=== PATIENT | male | born 1960 | race Caucasian/White ===

== ENCOUNTER 2024-08-01 09:59 | Inpatient (IN) | payer OTHER, SELFPAY ==
[2024-08-01] VITALS (7 sets, daily range): BP systolic 126–144; BP diastolic 73–87; PULSE 74–107; RESP 16–19; TEMP 36.2–37.2; O2SAT 95–99; BMI 32.8; BMI 32.3
--- NOTE | 2024-08-01 10:49 | EDS_ITS ---
HPI History of Present Illness Chief Complaint: Cellulitis Informant: patient Narrative Narrative: [id number] male presents increasing swelling right finger hand. Doing malena 2 days ago, he bumped his distal index finger with a hammer was not significant. He started having swelling to the finger that day. Overnight swelling hand with pain up the arm. No fevers or chills. He did not puncture himself with any nails. There is no open wounds. He has a scrape to his left forearm. History of thyroidectomy currently on thyroid medicines. Tetanus unclear if is in the last 5 years. Prior similar symptoms: No PFSH PFSH Home Medications ?Medication ?Instructions ?Recorded ?Last Taken ?Type ibuprofen 200 mg tablet (Advil) 400 mg PO Q8H PRN pain 08/01/24 07/31/24 History levothyroxine 125 mcg tablet 125 mcg PO DAILY 08/01/24 08/01/24 History Allergy/AdvReac Type Severity Reaction Status Date / Time No Known Allergies Allergy Verified 08/01/24 10:00 Social History Smoking Status: Never smoker ROS ROS ED Constitutional Constitutional ED: Denies chills, fever(s) or sweats Eyes Eyes: Denies change in vision ENT ENT ED: Denies dysphagia or sore throat Cardiovascular Cardiovascular: Denies chest pain, leg edema, palpitations or racing heartbeat Respiratory/Chest Respiratory/Chest: Denies cough, dyspnea or dyspnea on exertion Gastrointestinal Gastrointestinal: Denies abdominal pain, diarrhea, nausea or vomiting Genitourinary Genitourinary ED: Denies dysuria, hematuria or urinary frequency Musculoskeletal Musculoskeletal: Reports extremity pain; Denies back pain or neck pain Integumentary Reports wounds; Denies rash Neurologic Neurologic: Denies headache(s), paresthesias or weakness EXAM Physical Exam Const Vital Signs: 08/01/24 10:00 08/01/24 12:00 Temperature 97.2 F L Temperature Source Oral Pulse Rate 107 H 77 Respiratory Rate 18 19 H Blood Pressure 143/85 H 143/75 H Blood Pressure Mean 104 97 Pulse Ox 99 Oxygen Delivery Method Room Air Positive well nourished and well developed Constitutional Narrative: Nontoxic General Appearance ED: well developed and NAD HEENT Reports moist mucous membranes normocephalic and atraumatic Eyes EOMs intact bilaterally and conjunctivae normal General Eye ED: Yes normal appearance of both eyes Neck no lymphadenopathy and supple General: Negative for tenderness Chest Wall Chest: Negative for tenderness Resp normal respiratory effort and normal air movement Effort and Inspection: symmetric chest movement; Negative for respiratory distress Cardio regular rhythm and no murmurs Rate: tachycardic Peripheral Pulses: pulses 2+ throughout GI normal to inspection, nondistended, normoactive bowel sounds and non-tender Palpation: Negative for guarding or rebound tenderness present Back/Spine no CVA tenderness and no thoracic nor lumbar tenderness Extremity Extremity Narrative: Right upper extremity: Swelling to the index finger there is small ecchymosis on the distal phalanx, no nail involvement. No open wounds. Finger slight flexed with fusiform swelling in the finger. Pain with passive range of motion slight pain along the flexor tendon. He has dorsal hand swelling with redness streaking up the arm up to the mid humerus. No axillary lymphadenopathy. General Extremety ED: Yes edema and tenderness General Extremity: edema Neuro oriented x3 and no sensory deficits noted Sensorium / Orientation: awake and alert Skin no rashes or lesions noted and no wounds MDM MDM MDM Narrative Medical decision making narrative: Interventions / MDM: Differential diagnosis: Flexor tenosynovitis, cellulitis Diagnosis considered but do not suspect: N/A My EKG interpretation: N/A Imaging independently reviewed and interpreted by myself: Three-view x-ray right hand: Soft tissue swelling hand and index finger. No soft tissue gas. External documents reviewed: N/A Test considered but not ordered:N/A ED course: Afebrile slight tachycardia arrival. Exam concerns for tenosynovitis of the finger with cellulitis streaking up his arm. Erythema was outlined proximally. Sepsis labs ordered. He is covered with Zosyn and vancomycin. X- ray right hand ordered. 1130: White count 10.4 lactate is 1.7 CRP 96.9. ESR 17. I discussed with plastic surgeon/hand, Dr. Malhotra, sent photos through backline for evaluation. He will evaluate the patient in the ED. Patient evaluated the ED, recommendation admission to medicine for continued IV antibiotics. If symptoms worsen or do not improve, would take to OR. I discussed with Dr. Clark for admission. Re-evaluation: stable Disposition discussed with patient/family/significant other: Patient Case discussed with consulting clinician: Plastic surgery, hospitalist This note was generated with Dragon dictation software. It may contain incorrect words, spelling, and punctuation that were not noted in checking the note before signing. Lab Data Attestation: I reviewed the patient's lab results. Labs: Laboratory Results - last 24 hr 08/01/24 10:30 WBC 10.4 RBC 4.65 Hgb 13.8 Hct 41.0 MCV 88.2 MCH 29.7 MCHC 33.7 RDW Std Deviation 43.4 RDW Coeff of Ginger 13.5 Plt Count 177 MPV 8.6 Immature Gran % (Auto) 0.500 Neut % (Auto) 80.6 H Lymph % (Auto) 9.2 L [place] % (Auto) 8.8 Eos % (Auto) 0.4 Baso % (Auto) 0.5 Absolute Neuts (auto) 8.4 H Absolute Lymphs (auto) 0.95 Nucleated RBC % 0 ESR 17 PT 14.6 INR 1.1 APTT 28.6 Sodium 135 L Potassium 3.7 Chloride 103 Carbon Dioxide 28.0 Anion Gap 5 BUN 15 Creatinine 1.08 Estim Creat Clear Calc 85.83 Est GFR (MDRD) Af Amer 89 Est GFR (MDRD) Non-Af 73 BUN/Creatinine Ratio 13.9 Glucose 142 H Lactic Acid 1.7 Calcium 8.7 Total Bilirubin 2.00 H AST 20 ALT 21 Alkaline Phosphatase 56 C-React Prot Ext Range 96.90 H Total Protein 7.1 Albumin 3.7 Globulin 3.4 Albumin/Globulin Ratio 1.1 Radiography Diagnostic Testing: Clinical Impression(s) from Imaging Studies Hand X-Ray 08/01/24 11:05 IMPRESSION: Soft tissue swelling. Degenerative changes at the first carpometacarpal joint. Electronically Signed: Armani Perera MD at 11:29 EST , Discharge Plan Triage Chief Complaint: Cellulitis ED Provider: Kiran Gama Dx/Rx/DC Orders Clinical Impression: Cellulitis of finger, right, Cellulitis of hand, right Primary Care Provider: Tono Mena
[2024-08-01] MEDS: Piperacil/Tazobactam 4.5 GM in 0.9% Normal Saline (100mL MB+) 100 ML IV (10:58)
[2024-08-01] MEDS: Diphth,Pertuss(Acell),Tet Vac 0.5 ML Vial IM (10:58)
[2024-08-01 11:04] LABS: Erythrocyte Sedimentation Rate 17 mm/hr (0-20)
--- NOTE | 2024-08-01 11:05 | RAD_ITS ---
STUDY: X-RAY - RIGHT HAND REASON FOR EXAM: Male, 64 years old. Swelling and redness. Possible infection. TECHNIQUE: 3 view(s) of the hand. COMPARISON: None. FINDINGS: Normal radiocarpal articulation. Normal distal radioulnar joint. Normal visualized carpal bones. Normal carpal articulations There is degenerative arthrosis of the carpometacarpal (CMC) articulation of the thumb. Normal second through fifth carpometacarpal joints. Normal metacarpi. Normal metacarpophalangeal joint of the thumb. Normal interphalangeal joint of the thumb. Normal proximal and distal phalanges of the thumb. Normal metacarpophalangeal joints of the second through fifth fingers. Normal proximal and distal interphalangeal joints of the second through fifth fingers. Normal phalanges of the second through fifth fingers. Soft tissue swelling. RAD/Hand Min 3 Views IMPRESSION: Soft tissue swelling. Degenerative changes at the first carpometacarpal joint. Electronically Signed: Armani Perera MD at 11:29 EST ,
[2024-08-01 11:07] LABS: Absolute Lymphocyte Count 0.95 X10^3/uL (0.83-4.51); Absolute Neutrophil Count 8.4 X10^3/uL (2.0-7.7); Basophil# 0.05 X10^3/uL; Basophil% 0.5 % (0-1); Eosinophil# 0.04 X10^3/uL; Eosinophils% 0.4 % (0-5); Hemoglobin 13.8 g/dL (13.0-16.5); Lymphocyte # 0.95 X10^3/ul (0.83-4.51); Lymphocyte % 9.2 % (19-41); Mean Corp Hgb Conc 33.7 g/dL (32-36); Mean Corpuscular Hgb 29.7 pg (27.0-32.0); Mean Corpuscular Volume 88.2 fL (80-94); Mean Platelet Vol. 8.6 fl (6.2-12.0); Monocyte# 0.91 X10^3/uL; Monocyte% 8.8 % (0-10); NRBC Flagged by Analyzer 0 % (0-5); Neutrophil # 8.38 X10^3/uL (2.7-7.7); Neutrophil % 80.6 % (47-70); Platelet Count 177 K/mm3 (150-450); RBC Distribution Width CV 13.5 % (11.6-14.6); RBC Distribution Width SD 43.4 fl (35.1-43.9); Red Blood Count 4.65 M/mm3 (4.6-6.2); White Blood Count 10.4 K/mm3 (4.4-11.0)
[2024-08-01 11:13] LABS: ALB/GLOB Ratio 1.1 RATIO (0.9-2.4); AST(SGOT) 20 U/L (15-37); Alanine Aminotransfer ALT/SGPT 21 U/L (16-61); Albumin, Serum 3.7 g/dL (3.2-5.0); Alkaline Phosphatase 56 U/L (45-117); Anion Gap 5 (5-15); BUN 15 mg/dL (7-18); BUN/Creat Ratio 13.9 RATIO (10-20); Calcium,Total 8.7 mg/dL (8.5-10.1); Chloride 103 mmol/L (98-107); Creatinine, Serum 1.08 mg/dL (0.70-1.30); EST Glomerular Filtration Rate 73 mL/min (>60); Est Glom Filt Rate - Afr Amer 89 mL/min (>60); Estimated Creatinine Clearance 85.83 ml/min; Globulin 3.4 g/dL (2.2-4.2); Glucose 142 mg/dL (74-106); Potassium 3.7 mmol/L (3.5-5.1); Protein, Total 7.1 g/dL (6.4-8.2); Sodium Level 135 mmol/L (136-145)
[2024-08-01 11:19] LABS: International Normalized Ratio 1.1; Prothrombin Time (Protime)PT. 14.6 SECONDS (11.7-14.9)
[2024-08-01 11:20] LABS: Partial Thromboplast Time 28.6 Seconds (24.1-36.2)
[2024-08-01] MEDS: Vancomycin HCl 2,000 MG in 0.9% Normal Saline (500mL Bag) 500 ML 250 MG IV (11:22)
[2024-08-01 11:26] LABS: Lactic Acid 1.7 mmol/L (0.4-1.9)
--- NOTE | 2024-08-01 12:54 | EX.PCM.CON.S ---
Assessment & Plan Assessment/Plan (1) Cellulitis of hand, right: (2) Cellulitis of finger, right: PLAN: Plan Patient with likely cellulitis of the right hand. I reviewed x-ray and do not see foreign body or fractures. Given severity of the cellulitis (streaking erythema and pain), recommending admission to medicine for IV antibiotics (agree with broad-spectrum), elevation of the hand, and serial hand exams ([facility] to follow). NPO at midnight. HPI Consult Data Date of Consult: 08/01/24 HPI Narrative HPI Narrative: HIPOLITO RUIZ, is a 64 RHD M who presents with right hand pain and swelling with right arm streaking erythema of 1 day's duration. Reports that he was doing some malena 2 days ago (Thursday, 30 Jul 2024), when he hit his right index finger with a hammer. No wounds/bleeding and no punctures, but reports soreness the next night/day. Woke up today with dorsal and volar hand and finger pain and redness today. Pain is sharp/severe, and improved with rest and elevation. He is not a smoker. Patient is a mock and high school business teacher. Takes thyroid medication (thyroid removed), but is otherwise healthy (no blood thinner, no diabetes). Tetanus updated today in the ED. Of note, had saw injury in remote past to the finger tip of the right index finger tip/distal phalanx tuft requiring reconstruction with a skin graft. PFSH Home Medications ?Medication ?Instructions ?Recorded ?Last Taken ?Type ibuprofen 200 mg tablet (Advil) 400 mg PO Q8H PRN pain 08/01/24 07/31/24 History levothyroxine 125 mcg tablet 125 mcg PO DAILY 08/01/24 08/01/24 History Allergy/AdvReac Type Severity Reaction Status Date / Time No Known Allergies Allergy Verified 08/01/24 10:00 Social History Smoking Status: Never smoker Physical Exam Narrative RIGHT UPPER EXTREMITY +streaking erythema on arm and forearm No lymphadenopathy Inspection: Redness and swelling of the right index finger and dorsal hand. Swelling/redness is much worse dorsally than volarly. Palpation to the dorsal hand swelling is where the most pain is. [place] signs (Right Index Finger): Digit is not resting in flexed position Finger does have fusiform swelling Some pain with palpation along the sheath No pain with DIP joint passive extension/flexor tendon excursion. No pain radiating into the palm with movement of the finger. Motor: Able to bend and extend all MP, PIP, and DIP joints. Sensory: Intact to light touch on the radial and ulnar borders. Vascular: Finger tips are warm and well perfused with <2 second capillary refill. Const alert and oriented x3 Eyes EOMs intact bilaterally Lymph Lymphatic: no lymphadenopathy noted Resp normal respiratory effort Cardio Rate: regular rate Lab / Micro Data 08/01/24 10:30 08/01/24 10:30 Labs: Laboratory Results - last 24 hr 08/01/24 10:30: WBC 10.4, RBC 4.65, Hgb 13.8, Hct 41.0, MCV 88.2, MCH 29.7, MCHC 33.7, RDW Std Deviation 43.4, RDW Coeff of Ginger 13.5, Plt Count 177, MPV 8.6, Immature Gran % (Auto) 0.500, Neut % (Auto) 80.6 H, Lymph % (Auto) 9.2 L, [place] % (Auto) 8.8, Eos % (Auto) 0.4, Baso % (Auto) 0.5, Absolute Neuts (auto) 8.4 H, Absolute Lymphs (auto) 0.95, Nucleated RBC % 0, ESR 17, PT 14.6, INR 1.1, APTT 28.6, Sodium 135 L, Potassium 3.7, Chloride 103, Carbon Dioxide 28.0, Anion Gap 5, BUN 15, Creatinine 1.08, Estim Creat Clear Calc 85.83, Est GFR (MDRD) Af Amer 89, Est GFR (MDRD) Non-Af 73, BUN/Creatinine Ratio 13.9, Glucose 142 H, Lactic Acid 1.7, Calcium 8.7, Total Bilirubin 2.00 H, AST 20, ALT 21, Alkaline Phosphatase 56, C-React Prot Ext Range 96.90 H, Total Protein 7.1, Albumin 3.7, Globulin 3.4, Albumin/Globulin Ratio 1.1 Imaging Radiology Impression Hand X-Ray 08/01/24 11:05 IMPRESSION: Soft tissue swelling. Degenerative changes at the first carpometacarpal joint. Electronically Signed: Armani Perera MD at 11:29 EST , Charges/Coding Multi Select Codes Visit Charges Office Visit/Consults: 27390 OV L5 New 60min
--- NOTE | 2024-08-01 13:16 | PCM.HP.STD ---
HPI - General General Date of Admission: 08/01/24 Date of Service: 08/01/24 Chief Complaint: Right hand pain and swelling HPI Narrative HIPOLITO RUIZ, is a 64 M who presented to [facility] ED on 08/01/2024 with right hand pain and swelling. Patient was doing malena 2 days ago when he bumped his distal index finger with a hammer. He noted that he did not break the skin and the bump was not too significant. However, yesterday he started to develop swelling in that finger and overnight the swelling extended up his hand and started to streak up his arm, so he came in for further evaluation. Patient has never had anything like this happen before. He is on thyroid medication but has no other medical issues. He denies any fevers or chills. He has had pain in the right hand and has taken some ibuprofen at home for this with mild to moderate relief. Vitals were unremarkable in the ED. Labs are notable for borderline WBC count elevation of 10.4 and CRP 96. Right hand x-ray showed soft tissue swelling in the hand with degenerative changes at the first carpometacarpal joint, otherwise no joint involvement and no bony involvement. Patient was evaluated by Dr. Malhotra with plastics in the ED who noted likely cellulitis of the hand with no foreign body or fractures and recommended admission to medicine for IV antibiotics. Hospitalist was then contacted for admission. I saw the patient at bedside in the ED. Patient was sitting up comfortably in bed, conversing normally, in no acute distress. He was very pleasant. Continued to have some right hand pain with swelling when I saw him but denied any other concerns at this point. Will admit for further management. [facility] Home Medications ?Medication ?Instructions ?Recorded ?Last Taken ?Type ibuprofen 200 mg tablet (Advil) 400 mg PO Q8H PRN pain 08/01/24 07/31/24 History levothyroxine 125 mcg tablet 125 mcg PO DAILY 08/01/24 08/01/24 History Allergy/AdvReac Type Severity Reaction Status Date / Time No Known Allergies Allergy Verified 08/01/24 10:00 Social History Smoking Status: Never smoker ROS Constitutional Constitutional: Denies chills, fatigue, fever(s) or weakness Cardiovascular Cardiovascular: Denies chest pain Respiratory/Chest Respiratory/Chest: Denies shortness of breath at rest Gastrointestinal Gastrointestinal: Denies abdominal pain Musculoskeletal Musculoskeletal: Reports other Details: Right hand pain and swelling ; Denies arthralgias or myalgias Vital Signs Vital Signs Vital Signs: 08/01/24 10:00 08/01/24 12:00 Temperature 97.2 F L Temperature Source Oral Pulse Rate 107 H 77 Respiratory Rate 18 19 H Blood Pressure 143/85 H 143/75 H Blood Pressure Mean 104 97 Pulse Ox 99 Oxygen Delivery Method Room Air Weight Weight: 106.594 kg Body Mass Index (BMI) 32.8 Physical Exam Const alert, oriented x3, no apparent distress, healthy appearing and well nourished Constitutional Narrative: Pleasant middle-age male, obese, sitting up comfortably in bed, conversing normally, in no acute distress. General Appearance: cooperative, comfortable, well kempt and well developed HEENT normocephalic, head/scalp atraumatic, hearing grossly normal bilaterally, nasal mucous membranes and turbinates normal and moist oral mucous membranes Eyes PERRL, EOMs intact bilaterally and conjunctivae normal Neck full ROM Chest inspection of chest normal Resp normal respiratory effort, normal air movement, no use of accessory muscles and clear to auscultation bilaterally Cardio regular rate, regular rhythm, no murmurs and peripheral pulses 2+ throughout GI normal to inspection, nondistended, normoactive bowel sounds, soft to palpation, non-tender and non-distended Back/Spine normal ROM Extremity full ROM and no pedal edema Extremity Narrative: Right hand swelling fairly diffusely with streaking erythema up the ventral surface of the arm up to just above the elbow. No significant pain or discomfort with movement throughout the hand. Psych mental status grossly normal Results Lab / Micro Data 08/01/24 10:30 08/01/24 10:30 Labs: Laboratory Results - last 24 hr 08/01/24 10:30: WBC 10.4, RBC 4.65, Hgb 13.8, Hct 41.0, MCV 88.2, MCH 29.7, MCHC 33.7, RDW Std Deviation 43.4, RDW Coeff of Ginger 13.5, Plt Count 177, MPV 8.6, Immature Gran % (Auto) 0.500, Neut % (Auto) 80.6 H, Lymph % (Auto) 9.2 L, [place] % (Auto) 8.8, Eos % (Auto) 0.4, Baso % (Auto) 0.5, Absolute Neuts (auto) 8.4 H, Absolute Lymphs (auto) 0.95, Nucleated RBC % 0, ESR 17, PT 14.6, INR 1.1, APTT 28.6, Sodium 135 L, Potassium 3.7, Chloride 103, Carbon Dioxide 28.0, Anion Gap 5, BUN 15, Creatinine 1.08, Estim Creat Clear Calc 85.83, Est GFR (MDRD) Af Amer 89, Est GFR (MDRD) Non-Af 73, BUN/Creatinine Ratio 13.9, Glucose 142 H, Lactic Acid 1.7, Calcium 8.7, Total Bilirubin 2.00 H, AST 20, ALT 21, Alkaline Phosphatase 56, C-React Prot Ext Range 96.90 H, Total Protein 7.1, Albumin 3.7, Globulin 3.4, Albumin/Globulin Ratio 1.1 Imaging Radiology Impression Hand X-Ray 08/01/24 11:05 IMPRESSION: Soft tissue swelling. Degenerative changes at the first carpometacarpal joint. Electronically Signed: Armani Perera MD at 11:29 EST , Assessment & Plan Assessment/Plan (1) Cellulitis of hand, right: PLAN: Plan Patient is a 64-year-old male who presented to [facility] ED on 08/01/2024 with right hand pain and swelling. 1. Right hand cellulitis ? Plastic surgery consulted. Right hand diffuse swelling with erythema streaking up right arm most consistent with cellulitis. Hand x-ray showed soft tissue swelling but no joint or bony involvement and no foreign body or fractures noted. Borderline WBC count elevation and CRP elevated at 96 but otherwise hemodynamically stable and afebrile. Blood culture ordered. Per plastics, will treat with vancomycin and Zosyn for now along with elevation of the hand and serial hand exams. Will keep n.p.o. at midnight tonight in case of need for a procedure tomorrow. 2. Hypothyroidism ? Continue home Synthroid. 3. Obesity ? BMI 32 on admit. Encouraged lifestyle modifications. Complicates hospital course, care and prognosis. DVT prophylaxis: Lovenox CODE STATUS: Full code, verified Expected disposition: Home, 2 to 3 days Total clinical time spent by myself addressing the patient's medical issues, reviewing all the data, and collaborating with patient's care team: 55 minutes. Charges/Coding Visit Charges Inpatient E&M: 65020 Init Hosp L2
[2024-08-01] MEDS: Ketorolac 15 MG/ML Vial IV ×2 (14:28→23:04)
--- NOTE | 2024-08-01 14:51 | CASEMGMT ---
Care Management Face to Face with patient for initial transition planning/care coordination assessment.? This mortgage or loan underwriter and INDERJIT Perez met with patient in the ED, introduced selves and roles at [facility]. Patient lying in bed, alert and oriented. Patient willing to participate in assessment and is able to answer all questions appropriately.? Care providers, pharmacy, and demographics verified. Admitting Diagnosis: Cellulitis of right finger/hand Other diagnosis history: thyroid removal in January 2024 PCP: Tono Mena Specialists: Rachna Tobar [facility] Preferred Pharmacy: [facility] Insurance: [facility] Prescription Benefit:?yes Living Will/HPOA: Patient does not have, but he would maybe like information on this. LNOK: He is from his ex-, Gabriela. He has 1 stepdaughter, Cameron (30 years old). He has two sons, Cullen (19) and José Miguel (17). Cullen lives with him and José Miguel reportedly splits his time between his house and his ex-'s house. Living Arrangements: 2 story home, with 4 steps to get inside the front (15 steps if he goes in the back). Patient's bedroom and bathroom are on the first floor. Transportation: Patient drives himself to all appointments and has reliable transportation. 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 DME/HHC: Patient denies any DME or HHC. He reports having had some knee operations in the past where he believes he did some outpatient therapy through [facility]. Community Resources: None Behavioral Health History:?Patient reports seeing a counselor through [facility] when he from his ex- 2 years ago. He reports it being very helpful. Patient goals: Patient wishes to discharge home, denies need for home health at this time.? Patient states he has no further needs or concerns at this time. Disposition Plan: Anticipate return home when medically ready. RN JENNIFER/SW to follow for discharge planning needs that may arise. Will need information about advance directives as well. Handoff to acute team MAXIME RODRIGUEZ/INDERJIT team. Sheila Kearns, STOCK PULLER, ORNAMENTAL BRICK INSTALLER
--- NOTE | 2024-08-01 15:28 | PCM.RX.CS ---
Consult Antibiotic Management Pharmacy has been consulted to manage selected antibiotic: Vancomycin Type of Intervention Type of Consult: New start Suspected Infection Suspected Infection: Skin/Soft tissue Prior Doses of Antibiotics Prior Doses of Antibiotics Received/Current Regimen: 2000MG given 08/01/24 @ 1122 in [facility] room Labs Labs: Sodium 135 mmol/L (136-145) L 08/01/24 10:30 Potassium 3.7 mmol/L (3.5-5.1) 08/01/24 10:30 Chloride 103 mmol/L (98-107) 08/01/24 10:30 Carbon Dioxide 28.0 mmol/L (21.0-32.0) 08/01/24 10:30 Anion Gap 5 (5-15) 08/01/24 10:30 BUN 15 mg/dL (7-18) 08/01/24 10:30 Creatinine 1.08 mg/dL (0.70-1.30) 08/01/24 10:30 Est GFR (MDRD) Af Amer 89 mL/min (>60) 08/01/24 10:30 Est GFR (MDRD) Non-Af 73 mL/min (>60) 08/01/24 10:30 BUN/Creatinine Ratio 13.9 RATIO (10-20) 08/01/24 10:30 Glucose 142 mg/dL (74-106) H 08/01/24 10:30 Dosing Weight Weight used for dosin kg Estimated Creatinine Clearance Estimated Creatinine Clearance: 86 Goal Trough Goal Trough: 15-20 mcg/mL Pharmacy Plan for Drug Dosing Pharmacy Plan for Drug Dosinmg every 12 hours starting 08/01/24 @ 2300 Pharmacy Service will continue to monitor and adjust dosing as required. Follow-Up Labs Follow-Up Labs: Trough: Vancomycin Date/Time Labs Ordered Labs to be done on [date and time ordered]: 08/02/24 @ 2230
[2024-08-01] MEDS: 0.9% Saline Lock 10 ML Syringe IV (18:11)
[2024-08-01] MEDS: Piperacil/Tazobactam 3.375 GM in 0.9% Normal Saline (50mL MB+) 50 ML IV (21:59)
[2024-08-01] MEDS: 0.9% Normal Saline (500mL Bag) 500 ML 15 ML IV (21:59)
[2024-08-01] MEDS: Vancomycin HCl 1,750 MG in 0.9% Normal Saline (500mL Bag) 500 ML 250 MG IV (22:48)
[2024-08-02 03:45] VITALS: BP 132/80; PULSE 77; RESP 18; TEMP 36.6; O2SAT 97
--- NOTE | 2024-08-02 05:00 | EKG12_ITS ---
Test Reason : PRE-OP Blood Pressure : */* mmHG Vent. Rate : 70 BPM Atrial Rate : 70 BPM P-R Int : 156 ms QRS Dur : 124 ms QT Int : 424 ms P-R-T Axes : 77 -32 37 degrees QTcB Int : 457 ms Normal sinus rhythm Left axis deviation Non-specific intra-ventricular conduction delay Abnormal ECG When compared with ECG of 18-Nov-2011 13:01, Nonspecific T wave abnormality, worse in Inferior leads Confirmed by CALDERON WHEELER, REINA ([id number]), video effects editor LILIBETH WAGNER ([id number]) on 08/03/2024 8:49:53 AM Referred By: HÉCTOR Confirmed By: REINA MANCERA MD
[2024-08-02] MEDS: Levothyroxine 125 MCG Tablet PO (05:48)
[2024-08-02] MEDS: Ketorolac 15 MG/ML Vial IV ×2 (05:48→11:26)
[2024-08-02] MEDS: Piperacil/Tazobactam 3.375 GM in 0.9% Normal Saline (50mL MB+) 50 ML IV ×3 (05:48→20:41)
--- NOTE | 2024-08-02 06:06 | PN.SURG_ITS ---
Subjective Subjective Doing well this morning and reports left hand swelling and less pain since IV antibiotics and elevation. Reports the pain is mostly on the volar surface of P2 of the index finger. Objective Data Objective Data Vital Signs: Vital Signs Temp Pulse Resp BP Pulse Ox O2 Del Method 97.9 F 77 18 132/80 H 97 Room Air 08/02/24 03:45 08/02/24 03:45 08/02/24 03:45 08/02/24 03:45 08/02/24 03:45 08/02/24 03:45 Oxygen Delivery Method Room Air Weight: 232 lb Body Mass Index (BMI) 32.3 Intake & Output: Intake and Output for Last 24 Hours 07/31/24 08/01/24 08/02/24 23:59 23:59 23:59 Intake Total 1040 / 1040 585 / 585 Balance 1040 / 1040 585 / 585 Lab / Micro Data 08/01/24 10:30 08/01/24 10:30 Labs: Laboratory Results - last 24 hr 08/01/24 10:30: WBC 10.4, RBC 4.65, Hgb 13.8, Hct 41.0, MCV 88.2, MCH 29.7, MCHC 33.7, RDW Std Deviation 43.4, RDW Coeff of Ginger 13.5, Plt Count 177, MPV 8.6, Immature Gran % (Auto) 0.500, Neut % (Auto) 80.6 H, Lymph % (Auto) 9.2 L, [place] % (Auto) 8.8, Eos % (Auto) 0.4, Baso % (Auto) 0.5, Absolute Neuts (auto) 8.4 H, Absolute Lymphs (auto) 0.95, Nucleated RBC % 0, ESR 17, PT 14.6, INR 1.1, APTT 28.6, Sodium 135 L, Potassium 3.7, Chloride 103, Carbon Dioxide 28.0, Anion Gap 5, BUN 15, Creatinine 1.08, Estim Creat Clear Calc 85.83, Est GFR (MDRD) Af Amer 89, Est GFR (MDRD) Non-Af 73, BUN/Creatinine Ratio 13.9, Glucose 142 H, Lactic Acid 1.7, Calcium 8.7, Total Bilirubin 2.00 H, AST 20, ALT 21, Alkaline Phosphatase 56, C-React Prot Ext Range 96.90 H, Total Protein 7.1, Albumin 3.7, Globulin 3.4, Albumin/Globulin Ratio 1.1 Radiography Diagnostic Testing: Radiology Impression Hand X-Ray 08/01/24 11:05 IMPRESSION: Soft tissue swelling. Degenerative changes at the first carpometacarpal joint. Electronically Signed: Armani Perera MD at 11:29 EST , Physical Exam Narrative RIGHT UPPER EXTREMITY Resolved streaking erythema on arm and forearm No lymphadenopathy Inspection: Redness and swelling of the right index finger and dorsal hand has improved. Kanavel signs (Right Index Finger): Digit is not resting in flexed position Finger no longer has fusiform swelling Persistent pain over the volar surface of the index finger, but minimal pain over the A1 flornetin. No pain with DIP joint passive extension/flexor tendon excursion (no pain radiating into the palm). Motor: Able to bend and extend all MP, PIP, and DIP joints. Sensory: Intact to light touch on the radial and ulnar borders. Vascular: Finger tips are warm and well perfused with <2 second capillary refill. Const alert and oriented x3 Eyes EOMs intact bilaterally Lymph Lymphatic: no lymphadenopathy noted Resp normal respiratory effort Cardio Rate: regular rate Assessment & Plan Assessment/Plan (1) Cellulitis of finger, right: (2) Cellulitis of hand, right: PLAN: Plan Cellulitis since improving with elevation and broad-spectrum IV antibiotics. I would recommend continued inpatient treatment for IV antibiotics. Plastics will continue to follow Okay for diet today N.p.o. at midnight Charges/Coding Visit Charges Inpatient E&M: 99617 Init Hosp L2
[2024-08-02 06:59] LABS: Hematocrit 35.4 % (40-54); Mean Corp Hgb Conc 33.9 g/dL (32-36); Mean Corpuscular Hgb 30.2 pg (27.0-32.0); Mean Corpuscular Volume 88.9 fL (80-94); Mean Platelet Vol. 8.9 fl (6.2-12.0); Platelet Count 167 K/mm3 (150-450); RBC Distribution Width CV 13.6 % (11.6-14.6); RBC Distribution Width SD 44.6 fl (35.1-43.9); Red Blood Count 3.98 M/mm3 (4.6-6.2); White Blood Count 7.3 K/mm3 (4.4-11.0)
[2024-08-02 07:44] LABS: ALB/GLOB Ratio 1.1 RATIO (0.9-2.4); AST(SGOT) 13 U/L (15-37); Alanine Aminotransfer ALT/SGPT 14 U/L (16-61); Albumin, Serum 3.1 g/dL (3.2-5.0); Alkaline Phosphatase 52 U/L (45-117); Anion Gap 5 (5-15); BUN 17 mg/dL (7-18); BUN/Creat Ratio 16.3 RATIO (10-20); Calcium,Total 7.9 mg/dL (8.5-10.1); Chloride 105 mmol/L (98-107); Creatinine, Serum 1.04 mg/dL (0.70-1.30); EST Glomerular Filtration Rate 76 mL/min (>60); Est Glom Filt Rate - Afr Amer 92 mL/min (>60); Estimated Creatinine Clearance 88.58 ml/min; Globulin 2.8 g/dL (2.2-4.2); Glucose 113 mg/dL (74-106); Protein, Total 5.9 g/dL (6.4-8.2); Sodium Level 137 mmol/L (136-145)
[2024-08-02 07:54] VITALS: O2SAT 96
[2024-08-02 08:19] VITALS: BP 145/82; PULSE 77; RESP 18; TEMP 36.6; O2SAT 95
[2024-08-02 09:00] VITALS: PULSE 77
--- NOTE | 2024-08-02 10:43 | PCM.PN.HOSP ---
Subjective Subjective Doing well, no issues overnight. Hand feels better. Swelling is down. Objective Data Objective Data Vital Signs: Vital Signs Temp Pulse Resp BP Pulse Ox O2 Del Method 97.9 F 77 18 145/82 H 95 Room Air 08/02/24 08:19 08/02/24 08:19 08/02/24 08:19 08/02/24 08:19 08/02/24 08:19 08/02/24 08:19 Oxygen Delivery Method Room Air Weight: 232 lb Body Mass Index (BMI) 32.3 Intake & Output: Intake and Output for Last 24 Hours 08/01/24 08/02/24 08/03/24 03:59 03:59 03:59 Intake Total 1625 / 1625 0 / 0 Balance 1625 / 1625 0 / 0 Lab / Micro Data 08/02/24 06:20 08/02/24 06:20 Labs: Laboratory Results - last 24 hr 08/01/24 10:30: WBC 10.4, RBC 4.65, Hgb 13.8, Hct 41.0, MCV 88.2, MCH 29.7, MCHC 33.7, RDW Std Deviation 43.4, RDW Coeff of Ginger 13.5, Plt Count 177, MPV 8.6, Immature Gran % (Auto) 0.500, Neut % (Auto) 80.6 H, Lymph % (Auto) 9.2 L, [place] % (Auto) 8.8, Eos % (Auto) 0.4, Baso % (Auto) 0.5, Absolute Neuts (auto) 8.4 H, Absolute Lymphs (auto) 0.95, Nucleated RBC % 0, ESR 17, PT 14.6, INR 1.1, APTT 28.6, Sodium 135 L, Potassium 3.7, Chloride 103, Carbon Dioxide 28.0, Anion Gap 5, BUN 15, Creatinine 1.08, Estim Creat Clear Calc 85.83, Est GFR (MDRD) Af Amer 89, Est GFR (MDRD) Non-Af 73, BUN/Creatinine Ratio 13.9, Glucose 142 H, Lactic Acid 1.7, Calcium 8.7, Total Bilirubin 2.00 H, AST 20, ALT 21, Alkaline Phosphatase 56, C-React Prot Ext Range 96.90 H, Total Protein 7.1, Albumin 3.7, Globulin 3.4, Albumin/Globulin Ratio 1.1 08/02/24 06:20: WBC 7.3, RBC 3.98 L, Hgb 12.0 L, Hct 35.4 L, MCV 88.9, MCH 30.2, MCHC 33.9, RDW Std Deviation 44.6 H, RDW Coeff of Ginger 13.6, Plt Count 167, MPV 8.9, Sodium 137, Potassium 4.0, Chloride 105, Carbon Dioxide 27.0, Anion Gap 5, BUN 17, Creatinine 1.04, Estim Creat Clear Calc 88.58, Est GFR (MDRD) Af Amer 92, Est GFR (MDRD) Non-Af 76, BUN/Creatinine Ratio 16.3, Glucose 113 H, Calcium 7.9 L, Total Bilirubin 1.90 H, AST 13 L, ALT 14 L, Alkaline Phosphatase 52, Total Protein 5.9 L, Albumin 3.1 L, Globulin 2.8, Albumin/Globulin Ratio 1.1, TSH 1.600 Radiography Diagnostic Testing: Radiology Impression Hand X-Ray 08/01/24 11:05 IMPRESSION: Soft tissue swelling. Degenerative changes at the first carpometacarpal joint. Electronically Signed: Armani Perera MD at 11:29 EST , Physical Exam Narrative general: Alert, Oriented x3, Cooperative, No apparent distress HEENT: Atraumatic, PERRLA, EOMI, Normocephalic Oral: Moist Mucosa Neck: Supple, No JVD Lungs: Clear to auscultation, Normal air movement, No rhonchi, No wheeze, No rales Cardiovascular: Regular rate, Regular Rhythm, Normal S1, Normal S2, No murmurs Abdomen: Soft, Non Tender, Non-Distended, No Hepato-splenomegaly Extremities: No edema, Capillary Refill Less than 3 Seconds Skin: Swelling over the entirety of the first metacarpal with some redness on the dorsal aspect of his hand though the streaking is resolved Musculoskeletal: No Tenderness to Palpation of Joints or Extremities Neurological: No focal neurological deficits, Motor Exam 5/5 strength throughout, Sensory exam intact to light touch and pain Psych/Mental Status: Normal Affect, Appropriate Assessment & Plan Assessment/Plan (1) Cellulitis of hand, right: PLAN: Plan 1. Right hand cellulitis ? Plastic surgery consulted. Right hand diffuse swelling with erythema streaking up right arm most consistent with cellulitis. Hand x-ray showed soft tissue swelling but no joint or bony involvement and no foreign body or fractures noted. Borderline WBC count elevation and CRP elevated at 96 but otherwise hemodynamically stable and afebrile. Blood culture ordered. Per plastics, will treat with vancomycin and Zosyn for now along with elevation of the hand and serial hand exams. ? Appreciate plastic surgery's assistance, n.p.o. tonight for midnight possible intervention tomorrow 2. Hypothyroidism ? Continue home Synthroid. 3. Obesity ? BMI 32 on admit. Encouraged lifestyle modifications. Complicates hospital course, care and prognosis. DVT: Lovenox Charges/Coding Visit Charges Inpatient E&M: 53339 Subs Hosp L2
[2024-08-02] MEDS: Vancomycin HCl 1,750 MG in 0.9% Normal Saline (500mL Bag) 500 ML 250 MG IV ×2 (11:26→23:55)
[2024-08-02 17:00] VITALS: BP 145/82; PULSE 80; RESP 18; TEMP 37.1; O2SAT 96
[2024-08-02 20:44] VITALS: BP 142/89; PULSE 79; RESP 18; TEMP 37.2; O2SAT 97
[2024-08-02 23:16] LABS: Vancomycin, Trough Level 15.6 ug/mL (5.0-15.0)
--- NOTE | 2024-08-02 23:46 | PCM.RX.CS ---
Consult Antibiotic Management Pharmacy has been consulted to manage selected antibiotic: Vancomycin Type of Intervention Type of Consult: Follow-up Suspected Infection Suspected Infection: Skin/Soft tissue Labs Labs: Sodium 137 mmol/L (136-145) 08/02/24 06:20 Potassium 4.0 mmol/L (3.5-5.1) 08/02/24 06:20 Chloride 105 mmol/L (98-107) 08/02/24 06:20 Carbon Dioxide 27.0 mmol/L (21.0-32.0) 08/02/24 06:20 Anion Gap 5 (5-15) 08/02/24 06:20 BUN 17 mg/dL (7-18) 08/02/24 06:20 Creatinine 1.04 mg/dL (0.70-1.30) 08/02/24 06:20 Est GFR (MDRD) Af Amer 92 mL/min (>60) 08/02/24 06:20 Est GFR (MDRD) Non-Af 76 mL/min (>60) 08/02/24 06:20 BUN/Creatinine Ratio 16.3 RATIO (10-20) 08/02/24 06:20 Glucose 113 mg/dL (74-106) H 08/02/24 06:20 Vancomycin Trough 15.6 ug/mL (5.0-15.0) H 08/02/24 22:24 Dosing Weight Weight used for dosin kg Estimated Creatinine Clearance Estimated Creatinine Clearance: 89 Goal Trough Goal Trough: 15-20 mcg/mL Pharmacy Plan for Drug Dosing Pharmacy Plan for Drug Dosing: Vancomycin trough level of 15.6, drawn 11hrs post-dose, was within the target range of 15-20. Will continue dosing at 1750mg q12h, and will draw another trough level in two days. Pharmacy Service will continue to monitor and adjust dosing as required. Follow-Up Labs Follow-Up Labs: Trough: Vancomycin Date/Time Labs Ordered Labs to be done on [date and time ordered]: 08/04/24 @3153
[2024-08-03 02:23] VITALS: BP 132/74; PULSE 68; RESP 18; TEMP 36.4; O2SAT 98
[2024-08-03] MEDS: Piperacil/Tazobactam 3.375 GM in 0.9% Normal Saline (50mL MB+) 50 ML IV ×3 (06:05→21:52)
[2024-08-03] MEDS: Levothyroxine 125 MCG Tablet PO (06:05)
--- NOTE | 2024-08-03 07:09 | PCM.PN.BLA ---
Progress Note Doing well this morning and reports RIGHT hand swelling and less pain since IV antibiotics and elevation. Reports the pain is mostly on the volar surface of P2 of the index finger. Patient reports that he's feeling better. Physical Exam Narrative RIGHT UPPER EXTREMITY IMPROVED EXAM TODAY Resolved streaking erythema on arm and forearm No lymphadenopathy Inspection: Redness and swelling of the right index finger and dorsal hand has improved. Kanavel signs (Right Index Finger): Digit is not resting in flexed position Finger no longer has fusiform swelling Persistent pain over the volar surface of the index finger, but minimal pain over the A1 florentin. No pain with DIP joint passive extension/flexor tendon excursion (no pain radiating into the palm). Motor: Able to bend and extend all MP, PIP, and DIP joints. Sensory: Intact to light touch on the radial and ulnar borders. Vascular: Finger tips are warm and well perfused with <2 second capillary refill. Const alert and oriented x3 Eyes EOMs intact bilaterally Lymph Lymphatic: no lymphadenopathy noted Resp normal respiratory effort Cardio Rate: regular rate Assessment & Plan Assessment/Plan (1) Cellulitis of finger, right: (2) Cellulitis of hand, right: PLAN: Plan Cellulitis since improving with elevation and broad-spectrum IV antibiotics. I would recommend continued inpatient treatment for IV antibiotics. Continue elevation of RUE. Plastics will continue to follow O.K. for diet today N.p.o. at midnight Visit Charges Inpatient E&M: 80840 Subs Hosp L2
[2024-08-03 07:54] VITALS: O2SAT 95
[2024-08-03 08:25] VITALS: BP 137/80; PULSE 70; RESP 16; TEMP 37.2; O2SAT 100
--- NOTE | 2024-08-03 11:49 | PCM.PN.HOSP ---
Subjective Subjective Doing well, no issues overnight. No plan for surgery today, N.p.o. tonight and reevaluate tomorrow Objective Data Objective Data Vital Signs: Vital Signs Temp Pulse Resp BP Pulse Ox O2 Del Method 97.6 F L 68 18 132/74 H 95 Room Air 08/03/24 02:23 08/03/24 02:23 08/03/24 02:23 08/03/24 02:23 08/03/24 07:54 08/03/24 07:54 Oxygen Delivery Method Room Air Weight: 232 lb Body Mass Index (BMI) 32.3 Intake & Output: Intake and Output for Last 24 Hours 08/02/24 08/03/24 08/04/24 03:59 03:59 03:59 Intake Total 1625 / 1625 2569.25 / 2569.25 50 / 50 Balance 1625 / 1625 2569.25 / 2569.25 50 / 50 Lab / Micro Data 08/02/24 06:20 08/02/24 06:20 Labs: Laboratory Results - last 24 hr 08/02/24 22:24: Vancomycin Trough 15.6 H Micro: Microbiology 08/01/24 10:30 Blood Culture (Wb) - Anticubital Left Blood Culture - Preliminary No growth in 48 hours. Physical Exam Narrative General: Alert, Oriented x3, Cooperative, No apparent distress HEENT: Atraumatic, PERRLA, EOMI, Normocephalic Oral: Moist Mucosa Neck: Supple, No JVD Lungs: Clear to auscultation, Normal air movement, No rhonchi, No wheeze, No rales Cardiovascular: Regular rate, Regular Rhythm, Normal S1, Normal S2, No murmurs Abdomen: Soft, Non Tender, Non-Distended, No Hepato-splenomegaly Extremities: No edema, Capillary Refill Less than 3 Seconds Skin: Swelling over the entirety of the first metacarpal with some redness on the dorsal aspect of his hand though the streaking is resolved Musculoskeletal: No Tenderness to Palpation of Joints or Extremities Neurological: No focal neurological deficits, Motor Exam 5/5 strength throughout, Sensory exam intact to light touch and pain Psych/Mental Status: Normal Affect, Appropriate Assessment & Plan Assessment/Plan (1) Cellulitis of hand, right: PLAN: Plan 1. Right hand cellulitis ? Plastic surgery consulted. Right hand diffuse swelling with erythema streaking up right arm most consistent with cellulitis. Hand x-ray showed soft tissue swelling but no joint or bony involvement and no foreign body or fractures noted. Borderline WBC count elevation and CRP elevated at 96 but otherwise hemodynamically stable and afebrile. Blood culture ordered. Per plastics, will treat with vancomycin and Zosyn for now along with elevation of the hand and serial hand exams. ? Appreciate plastic surgery's assistance, n.p.o. tonight for midnight possible intervention tomorrow 2. Hypothyroidism ? Continue home Synthroid. 3. Obesity ? BMI 32 on admit. Encouraged lifestyle modifications. Complicates hospital course, care and prognosis. DVT: Lovenox Charges/Coding Visit Charges Inpatient E&M: 14050 Subs Hosp L2
[2024-08-03] MEDS: Enoxaparin 40 MG/0.4 ML Syringe SC (11:54)
[2024-08-03] MEDS: Vancomycin HCl 1,750 MG in 0.9% Normal Saline (500mL Bag) 500 ML 250 MG IV ×2 (12:11→22:48)
--- NOTE | 2024-08-03 14:46 | CASEMGMT ---
Social Work- SW met with pt to provide additional information on directives. SW provided printed planning materials booklet and copy of directives for review. Pt will look over everything and reach out to SW with any questions and if interested in completing. SW remains available to follow. EILEEN Bourgeois
[2024-08-03 19:59] VITALS: BP 133/73; PULSE 73; RESP 16; TEMP 36.8; O2SAT 98
[2024-08-03] MEDS: 0.9% Saline Lock 10 ML Syringe IV (22:48)
[2024-08-03] MEDS: 0.9% Normal Saline (500mL Bag) 500 ML 15 ML IV (22:48)
[2024-08-04 01:36] VITALS: BP 129/73; PULSE 66; RESP 16; TEMP 37; O2SAT 96
[2024-08-04] MEDS: Piperacil/Tazobactam 3.375 GM in 0.9% Normal Saline (50mL MB+) 50 ML IV ×2 (05:49→13:31)
[2024-08-04] MEDS: Levothyroxine 125 MCG Tablet PO (05:49)
[2024-08-04 07:29] LABS: Absolute Lymphocyte Count 1.09 X10^3/uL (0.83-4.51); Absolute Neutrophil Count 3.1 X10^3/uL (2.0-7.7); Basophil# 0.05 X10^3/uL; Eosinophil# 0.26 X10^3/uL; Hematocrit 36.8 % (40-54); Hemoglobin 12.6 g/dL (13.0-16.5); Lymphocyte # 1.09 X10^3/ul (0.83-4.51); Mean Corp Hgb Conc 34.2 g/dL (32-36); Mean Corpuscular Hgb 30.4 pg (27.0-32.0); Mean Corpuscular Volume 88.7 fL (80-94); Mean Platelet Vol. 8.7 fl (6.2-12.0); Monocyte# 0.65 X10^3/uL; Monocyte% 12.5 % (0-10); NRBC Flagged by Analyzer 0 % (0-5); Neutrophil % 59.7 % (47-70); Platelet Count 208 K/mm3 (150-450); RBC Distribution Width CV 13.3 % (11.6-14.6); RBC Distribution Width SD 43.6 fl (35.1-43.9); Red Blood Count 4.15 M/mm3 (4.6-6.2); White Blood Count 5.2 K/mm3 (4.4-11.0)
[2024-08-04 08:04] LABS: Anion Gap 5 (5-15); BUN 11 mg/dL (7-18); BUN/Creat Ratio 12.4 RATIO (10-20); Calcium,Total 8.7 mg/dL (8.5-10.1); Chloride 106 mmol/L (98-107); Creatinine, Serum 0.88 mg/dL (0.70-1.30); EST Glomerular Filtration Rate 92 mL/min (>60); Est Glom Filt Rate - Afr Amer 111 mL/min (>60); Estimated Creatinine Clearance 104.68 ml/min; Glucose 108 mg/dL (74-106); Potassium 4.1 mmol/L (3.5-5.1); Sodium Level 138 mmol/L (136-145)
[2024-08-04 08:06] VITALS: BP 137/96; PULSE 69; RESP 16; TEMP 36.5; O2SAT 97
--- NOTE | 2024-08-04 08:30 | WOUNDNOTE ---
In to assess the right hand with Dr Malhotra this am. pt has arm elevated on wedge pillow. redness and edema continue to improve. pt is getting more movement in the hand. can almost make a full fist. plan is to watch again today and have patient NPO after midnight until assessed by Dr Malhotra in the am. pt denies further needs at this time.
--- NOTE | 2024-08-04 10:29 | PCM.PN.HOSP ---
Subjective Subjective Doing well, says that everything is improving slowly he is able to have a bit morbility in his finger on the right hand Objective Data Objective Data Vital Signs: Vital Signs Temp Pulse Resp BP Pulse Ox O2 Del Method 97.7 F L 69 16 137/96 H 97 Room Air 08/04/24 08:06 08/04/24 08:06 08/04/24 08:06 08/04/24 08:06 08/04/24 08:06 08/04/24 08:07 Oxygen Delivery Method Room Air Weight: 232 lb Body Mass Index (BMI) 32.3 Intake & Output: Intake and Output for Last 24 Hours 08/03/24 08/04/24 08/05/24 03:59 03:59 03:59 Intake Total 2569.25 / 2569.25 3385 / 3385 100 / 100 Balance 2569.25 / 2569.25 3385 / 3385 100 / 100 Lab / Micro Data 08/04/24 07:05 08/04/24 07:05 Labs: Laboratory Results - last 24 hr 08/04/24 07:05: WBC 5.2, RBC 4.15 L, Hgb 12.6 L, Hct 36.8 L, MCV 88.7, MCH 30.4, MCHC 34.2, RDW Std Deviation 43.6, RDW Coeff of Ginger 13.3, Plt Count 208, MPV 8.7, Immature Gran % (Auto) 0.800, Neut % (Auto) 59.7, Lymph % (Auto) 21.0, [place] % (Auto) 12.5 H, Eos % (Auto) 5.0, Baso % (Auto) 1.0, Absolute Neuts (auto) 3.1, Absolute Lymphs (auto) 1.09, Nucleated RBC % 0, Sodium 138, Potassium 4.1, Chloride 106, Carbon Dioxide 27.0, Anion Gap 5, BUN 11, Creatinine 0.88, Estim Creat Clear Calc 104.68, Est GFR (MDRD) Af Amer 111, Est GFR (MDRD) Non-Af 92, BUN/Creatinine Ratio 12.4, Glucose 108 H, Calcium 8.7 Micro: Microbiology 08/01/24 10:30 Blood Culture (Wb) - Anticubital Left Blood Culture - Preliminary No growth in 48 hours. Physical Exam Narrative General: Alert, Oriented x3, Cooperative, No apparent distress HEENT: Atraumatic, PERRLA, EOMI, Normocephalic Oral: Moist Mucosa Neck: Supple, No JVD Lungs: Clear to auscultation, Normal air movement, No rhonchi, No wheeze, No rales Cardiovascular: Regular rate, Regular Rhythm, Normal S1, Normal S2, No murmurs Abdomen: Soft, Non Tender, Non-Distended, No Hepato-splenomegaly Extremities: No edema, Capillary Refill Less than 3 Seconds Skin: Swelling over the entirety of the first metacarpal with some redness on the dorsal aspect of his hand though the streaking is resolved Musculoskeletal: No Tenderness to Palpation of Joints or Extremities Neurological: No focal neurological deficits, Motor Exam 5/5 strength throughout, Sensory exam intact to light touch and pain Psych/Mental Status: Normal Affect, Appropriate Assessment & Plan Assessment/Plan (1) Cellulitis of hand, right: PLAN: Plan 1. Right hand cellulitis ? Plastic surgery consulted. Right hand diffuse swelling with erythema streaking up right arm most consistent with cellulitis. Hand x-ray showed soft tissue swelling but no joint or bony involvement and no foreign body or fractures noted. Borderline WBC count elevation and CRP elevated at 96 but otherwise hemodynamically stable and afebrile. Blood culture ordered. Per plastics, will treat with vancomycin and Zosyn for now along with elevation of the hand and serial hand exams. ? Appreciate plastic surgery's assistance, continue with 1 more day of IV antibiotics could potentially discharge tomorrow on oral antibiotics if continues to have improvement 2. Hypothyroidism ? Continue home Synthroid. 3. Obesity ? BMI 32 on admit. Encouraged lifestyle modifications. Complicates hospital course, care and prognosis. DVT: Lovenox Charges/Coding Visit Charges Inpatient E&M: 36097 Subs Hosp L2
[2024-08-04] MEDS: Vancomycin HCl 1,750 MG in 0.9% Normal Saline (500mL Bag) 500 ML 250 MG IV ×2 (10:41→23:31)
[2024-08-04] MEDS: Enoxaparin 40 MG/0.4 ML Syringe SC (10:42)
--- NOTE | 2024-08-04 13:42 | PCM.PN.BLA ---
Progress Note Doing well. Reports improved pain and less swelling. Pain only in finger, not in the palm. reports better hand ROM. Physical Exam Narrative RIGHT UPPER EXTREMITY IMPROVED EXAM AGAIN TODAY Resolved streaking erythema on arm and forearm No lymphadenopathy Inspection: Redness and swelling of the right index finger and dorsal hand has improved. Kanavel signs (Right Index Finger): Digit is not resting in flexed position Finger no longer has fusiform swelling Persistent pain over the volar surface of the index finger, but minimal pain over the A1 florentin. No pain with DIP joint passive extension/flexor tendon excursion (no pain radiating into the palm). Motor: Able to bend and extend all MP, PIP, and DIP joints. Sensory: Intact to light touch on the radial and ulnar borders. Vascular: Finger tips are warm and well perfused with <2 second capillary refill. Const alert and oriented x3 Eyes EOMs intact bilaterally Lymph Lymphatic: no lymphadenopathy noted Resp normal respiratory effort Cardio Rate: regular rate Assessment & Plan Assessment/Plan (1) Cellulitis of finger, right: (2) Cellulitis of hand, right: PLAN: Plan Cellulitis continues to improve. I would recommend continued inpatient treatment for IV antibiotics. Continue elevation of RUE. Plastics will continue to follow O.K. for diet today N.p.o. at midnight Multi Select Codes Visit Charges Visit Charges: 33144 Subs Hosp L2
[2024-08-04 14:10] VITALS: BP 137/87; PULSE 88; RESP 16; TEMP 36.6; O2SAT 98
[2024-08-04 19:39] VITALS: BP 140/85; PULSE 76; RESP 18; TEMP 36.6; O2SAT 97
[2024-08-04] MEDS: Acetaminophen 325 MG Tablet 650 MG PO (19:43)
[2024-08-04 23:16] LABS: Vancomycin, Trough Level 16.6 ug/mL (5.0-15.0)
--- NOTE | 2024-08-05 01:46 | PCM.RX.CS ---
Consult Antibiotic Management Pharmacy has been consulted to manage selected antibiotic: Vancomycin Type of Intervention Type of Consult: Follow-up Labs Labs: Sodium 138 mmol/L (136-145) 08/04/24 07:05 Potassium 4.1 mmol/L (3.5-5.1) 08/04/24 07:05 Chloride 106 mmol/L (98-107) 08/04/24 07:05 Carbon Dioxide 27.0 mmol/L (21.0-32.0) 08/04/24 07:05 Anion Gap 5 (5-15) 08/04/24 07:05 BUN 11 mg/dL (7-18) 08/04/24 07:05 Creatinine 0.88 mg/dL (0.70-1.30) 08/04/24 07:05 Est GFR (MDRD) Af Amer 111 mL/min (>60) 08/04/24 07:05 Est GFR (MDRD) Non-Af 92 mL/min (>60) 08/04/24 07:05 BUN/Creatinine Ratio 12.4 RATIO (10-20) 08/04/24 07:05 Glucose 108 mg/dL (74-106) H 08/04/24 07:05 Vancomycin Trough 16.6 ug/mL (5.0-15.0) H 08/04/24 22:45 Microbiology Microbiology: Microbiology 08/01/24 10:30 Blood Culture (Wb) - Anticubital Left Blood Culture - Preliminary No growth in 48 hours. Goal Trough Goal Trough: 15-20 mcg/mL Pharmacy Plan for Drug Dosing Pharmacy Plan for Drug Dosing: Pharmacy Service will continue to monitor and adjust dosing as required. TROUGH 16.6 @ 12 HOURS. NO CHANGES, FOLLOW UP TROUGH IN 2 DAYS Follow-Up Labs Follow-Up Labs: Trough: Vancomycin Date/Time Labs Ordered Labs to be done on [date and time ordered]: 08/06 @ 7932
[2024-08-05] MEDS: Piperacil/Tazobactam 3.375 GM in 0.9% Normal Saline (50mL MB+) 50 ML IV ×2 (03:16→08:07)
[2024-08-05 05:25] VITALS: BP 147/88; PULSE 74; RESP 18; TEMP 36.6; O2SAT 98
--- NOTE | 2024-08-05 07:23 | WOUNDNOTE ---
In to reassess the right hand with Dr Malhotra this am. less redness noted again today. pt has more movement in the right pointer finger today. pain decreased as well.
--- NOTE | 2024-08-05 07:40 | PCM.PN.BLA ---
Progress Note Doing better. Reports better ROM and less pain. Compliant with rest and elevation. No fevers/chills Physical Exam Narrative RIGHT UPPER EXTREMITY IMPROVED EXAM AGAIN TODAY Resolved streaking erythema on arm and forearm No lymphadenopathy Inspection: Redness and swelling of the right index finger and dorsal hand has improved. Kanavel signs (Right Index Finger): Digit is not resting in flexed position Finger no longer has fusiform swelling Persistent pain over the volar surface of the index finger has improved greatly (most of pain is on dorsal and radial aspect of index today), and minimal pain over the A1 florentin. No pain with DIP joint passive extension/flexor tendon excursion (no pain radiating into the palm). Motor: Able to bend and extend all MP, PIP, and DIP joints. Sensory: Intact to light touch on the radial and ulnar borders. Vascular: Finger tips are warm and well perfused with <2 second capillary refill. Const alert and oriented x3 Eyes EOMs intact bilaterally Lymph Lymphatic: no lymphadenopathy noted Resp normal respiratory effort Cardio Rate: regular rate Assessment & Plan Assessment/Plan (1) Cellulitis of finger, right: (2) Cellulitis of hand, right: PLAN: Plan Cellulitis continues to improve. I discussed return precautions with him (pain over volar surface of finger/pain in palm, ect) that would warrant return to hospital/ED this weekend. F/u with us on Thursday for a check OK from [facility] standpoint for DC home on empiric PO antibiotic course Visit Charges Inpatient E&M: 90429 Subs Hosp L2
[2024-08-05] MEDS: Levothyroxine 125 MCG Tablet PO (08:07)
[2024-08-05 08:38] VITALS: BP 134/87; PULSE 62; RESP 16; TEMP 36.5; O2SAT 97
--- NOTE | 2024-08-05 09:42 | DCINST_ITS ---
Discharge Instructions Diet Discharge Diet: No restrictions Activity Discharge Activity: Return to Normal Activity Dressing / Incision Call your doctor if your incision/area has: Increased Pain/ Swelling and Increased Redness Call your doctor if you observe: Fever of 101 or Higher, Shortness of breath, Dizziness, Fainting spells, Swelling in the ankles, Chest pain and Increased palpitations (irregular heartbeat) Follow Up Care Test Results: Test results from this visit will be discussed in further detail at your follow- up appointment, if applicable. Discharge Plan Admission Admit Date/Time: 08/01/24 13:26 Attending Provider: Lul Saha Primary Care Provider: Tono Mena Consulting Providers: Carlito Malhotra; Bijan Clark Instructions Forms: Work / School Excuse Discharge Orders/Prescriptions Prescriptions: New amoxicillin-pot clavulanate 875-125 mg tablet 1 tab PO BID 7 Days Qty: 14 0RF Continued levothyroxine 125 mcg tablet 125 mcg PO DAILY ibuprofen [Advil] 200 mg tablet 400 mg PO Q8H PRN (Reason: pain) Referrals / Follow Up: Tono Mena MD [Primary Care Provider] - Within 1 Week [facility] [Non-Staff] - 08/08/24 Disposition Disposition (needs filled in before D/C Order can be placed): Home, Self Care
--- NOTE | 2024-08-05 10:20 | CASEMGMT ---
RN CM into pt room, pt just finished ambulating the halls indep. Pt denies any homegoing needs. Pt states he has his transportation coming to take him home. Pt aware of [facility] follow up appt.
--- NOTE | 2024-08-05 10:21 | PHA.DC.MC.R ---
Pharmacy [facility] has performed discharge medication reconciliation and counseling for this patient. The patient's discharge medication list was reviewed for discrepancies and discrepancies were resolved. The patient was counseled on the following discharge medications and changes in medications for homegoing were reviewed. The Reason for Use, instructions for use, and potential side effects were reviewed for all new medications. The patient's questions regarding all of their medications were answered. 1. Amoxicillin/clavulanate 875/125 mg 1 PO BID x 7 days The patient was able to verbally demonstrate an understanding of their discharge medications. The patient was counselled on new medication by pharmacy care coordinator Chad. Medications at Discharge Home Medications ibuprofen 200 mg tablet (Advil) 400 mg PO Q8H PRN pain 08/01/24 levothyroxine 125 mcg tablet 125 mcg PO DAILY 08/01/24 amoxicillin 875 mg-potassium clavulanate 125 mg tablet 1 tab PO BID 7 days #14 tabs 08/05/24
--- NOTE | 2024-08-05 13:29 | DS.PCM_ITS ---
Providers Date of Admission: 08/01/24 Primary Care Physician: Dr. Tono Mena MD Consultations 08/01/24 15:12 Consult: Plastic Surgery Routine Consulting Provider: Carlito Malhotra Reason for Consult: right hand cellulitis EMERGENT Consult: No MD Notified: Yes Date Notified: 08/01/24 Time Notified: 15:39 Method of Notification: Text Reason For Visit: RIGHT HAND CELLULITIS Diagnosis Discharge Diagnosis (1) Cellulitis of finger, right: Status: Acute Code(s): L03.011 - Cellulitis of right finger (2) Cellulitis of hand, right: Status: Acute Code(s): L03.113 - Cellulitis of right upper limb Medications at Discharge Home Medications ibuprofen 200 mg tablet (Advil) 400 mg PO Q8H PRN pain 08/01/24 levothyroxine 125 mcg tablet 125 mcg PO DAILY 08/01/24 amoxicillin 875 mg-potassium clavulanate 125 mg tablet 1 tab PO BID 7 days #14 tabs 08/05/24 Hospital Course Operations None Procedures None Summary of Care Provided Minutes Spent on Discharge: 35 Hospital Course: Per HPI: HIPOLITO RUIZ, is a 64 M who presented to [facility] ED on 08/01/2024 with right hand pain and swelling. Patient was doing malena 2 days ago when he bumped his distal index finger with a hammer. He noted that he did not break the skin and the bump was not too significant. However, yesterday he started to develop swelling in that finger and overnight the swelling extended up his hand and started to streak up his arm, so he came in for further evaluation. Patient has never had anything like this happen before. He is on thyroid medication but has no other medical issues. He denies any fevers or chills. He has had pain in the right hand and has taken some ibuprofen at home for this with mild to moderate relief. Vitals were unremarkable in the ED. Labs are notable for borderline WBC count elevation of 10.4 and CRP 96. Right hand x-ray showed soft tissue swelling in the hand with degenerative changes at the first carpometacarpal joint, otherwise no joint involvement and no bony involvement. Patient was evaluated by Dr. Malhotra with plastics in the ED who noted likely cellulitis of the hand with no foreign body or fractures and recommended admission to medicine for IV antibiotics. Hospitalist was then contacted for admission. I saw the patient at bedside in the ED. Patient was sitting up comfortably in bed, conversing normally, in no acute distress. He was very pleasant. Continued to have some right hand pain with swelling when I saw him but denied any other concerns at this point. Will admit for further management. Hospital Course: 1. Right hand cellulitis after hitting it with a hammer?64-year-old male presents to the hospital with right hand swelling after he hit his finger with a hammer. He had streaking up his arm and was started on broad-spectrum antibiotics. Plastic surgery was consulted recommended elevation. He ultimately had significant improvement with just IV antibiotics and did not need any operative intervention. Will plan to discharge him on 7 more days of p.o. Augmentin and he already has follow-up scheduled with plastic surgery at the wound care center on Thursday for further evaluation. I discussed with him the plan for discharge today he expressed understanding respect to going home and would like to go home today. Culture data so far has been negative. Physical Exam Narrative General: Alert, Oriented x3, Cooperative, No apparent distress HEENT: Atraumatic, PERRLA, EOMI, Normocephalic Oral: Moist Mucosa Neck: Supple, No JVD Lungs: Clear to auscultation, Normal air movement, No rhonchi, No wheeze, No rales Cardiovascular: Regular rate, Regular Rhythm, Normal S1, Normal S2, No murmurs Abdomen: Soft, Non Tender, Non-Distended, No Hepato-splenomegaly Extremities: No edema, Capillary Refill Less than 3 Seconds Skin: Swelling over the entirety of the first metacarpal with some redness on the dorsal aspect of his hand though the streaking is resolved Musculoskeletal: No Tenderness to Palpation of Joints or Extremities Neurological: No focal neurological deficits, Motor Exam 5/5 strength throughout, Sensory exam intact to light touch and pain Psych/Mental Status: Normal Affect, Appropriate Weight / BMI Weight Weight: 232 lb Body Mass Index (BMI) 32.3 ABG / Lab / Microbiology Data 08/04/24 07:05 08/04/24 07:05 Laboratory: Laboratory Results - last 24 hr 08/04/24 22:45: Vancomycin Trough 16.6 H Microbiology: Microbiology 08/01/24 10:30 Blood Culture (Wb) - Anticubital Left Blood Culture - Preliminary No growth in 48 hours. D/C Instructions Discharge Diet: No restrictions Call your doctor if your incision/area has: Increased Pain/ Swelling and Increased Redness Call your doctor if you observe: Fever of 101 or Higher, Shortness of breath, Dizziness, Fainting spells, Swelling in the ankles, Chest pain and Increased palpitations (irregular heartbeat) Meaningful Use Info Meaningful Use Meaningful Use Diagnoses (Choose all that apply): None applicable Ischemic Stroke Statin Dosing Therapy Reference: STATIN DOSE THERAPY REFERENCE: * Patients > 75 years receive moderate or high dose statin therapy. * Patients 75 years or YOUNGER should receive HIGH intensity statin dose unless contraindicated. You will be required to document reason for non-treatment if statin daily dose does not meet guidelines. HIGH DOSE STATIN THERAPY DAILY Atorvastatin > than or = to 40 mg Rosuvastatin > than or = to 20 mg Amlodipine + Atorvastatin > than or = to 2.5/40 mg Ezetimibe + Simvastatin 10/80 mg Simvastatin 80mg Discharge Plan Admission Admit Date/Time: 08/01/24 13:26 Attending Provider: Lul Saha Primary Care Provider: Tono Mena Consulting Providers: Carlito Malhotra; Bijan Clark Instructions Forms: Work / School Excuse Discharge Orders/Prescriptions Prescriptions: New amoxicillin-pot clavulanate 875-125 mg tablet 1 tab PO BID 7 Days Qty: 14 0RF Continued levothyroxine 125 mcg tablet 125 mcg PO DAILY ibuprofen [Advil] 200 mg tablet 400 mg PO Q8H PRN (Reason: pain) Referrals / Follow Up: Tono Mena MD [Primary Care Provider] - Within 1 Week [facility] [Non-Staff] - 08/08/24 Disposition Disposition (needs filled in before D/C Order can be placed): Home, Self Care Charges/Coding Visit Charges Inpatient E&M: 09793 Disch Hosp >30min
== END 2024-08-05 13:41 | disposition home or self-care (01) | DRG 603 ==
LOC: ED 10:56 → MS3 14:19
PROVIDERS: Family Medicine; Admitting Provider Hospitalist; Emergency Provider Emergency Medicine; PCP Family Medicine; Visit Provider Family Medicine
DX: L03.113 Cellulitis of right upper limb (principal); E03.9 Hypothyroidism, unspecified; E66.9 Obesity, unspecified; Z79.1 Long term (current) use of non-steroidal anti-inflammatories (NSAID); L03.011 Cellulitis of right finger; Z68.32 Body mass index [BMI] 32.0-32.9, adult; Z79.2 Long term (current) use of antibiotics; Z79.890 Hormone replacement therapy; W27.8XXA Contact with other nonpowered hand tool, initial encounter
CPT/HCPCS: 36415; 73130; 80048; 80053; 80202; 83605; 84443; 85025; 85027; 85610; 85652; 85730; 86140; 87040; 90715; 93005; 99283; A4216

== ENCOUNTER 2024-08-08 09:44 | Outpatient (RCR) | payer OTHER, SELFPAY ==
[2024-08-08 09:50] VITALS: BP 145/80; PULSE 69; RESP 20; TEMP 36.3; BMI 32.1
--- NOTE | 2024-08-08 10:42 | PCM.WC.HP ---
History of Present Illness Date of Service: 08/08/24 Chief Complaint: right index finger swelling History of Wound: HIPOLITO RUIZ, is a 64 M who presented to [facility] ED on 08/01/2024 with right hand pain and swelling. Patient was doing malena on 07/30/24 when he bumped his distal index finger with a hammer. He noted that he did not break the skin and the bump was not too significant. However, yesterday he started to develop swelling in that finger and overnight the swelling extended up his hand and started to streak up his arm, so he came in for further evaluation. Patient has never had anything like this happen before. He is on thyroid medication but has no other medical issues. He denies any fevers or chills. He has had pain in the right hand and has taken some ibuprofen at home for this with mild to moderate relief. Vitals were unremarkable in the ED. Labs are notable for borderline WBC count elevation of 10.4 and CRP 96. Right hand x-ray showed soft tissue swelling in the hand with degenerative changes at the first carpometacarpal joint, otherwise no joint involvement and no bony involvement. Patient was evaluated by Dr. Malhotra with plastics in the ED who noted likely cellulitis of the hand with no foreign body or fractures and recommended admission to medicine for IV antibiotics. Hospitalist was then contacted for admission. I saw the patient at bedside in the ED. Patient was sitting up comfortably in bed, conversing normally, in no acute distress. He was very pleasant. Continued to have some right hand pain with swelling. Admitted for IV antibiotics. Cellulitis improved. He was discharged home on 08/03/24 on Augmentin. He presents today for further evaluation and treatment. He denies fever, chills, nausea, vomiting. He states that swelling is improving. Progress of Wound: Right index finger that has decrease in swelling. He is able to make a loose fist. He is able to bend his right index finger. No erythema present. Discomfort is mostly from swelling which is much improved. [facility] Medical History Hypothyroidism Home Medications ?Medication ?Instructions ?Recorded ?Last Taken ?Type ibuprofen 200 mg tablet (Advil) 400 mg PO Q8H PRN pain 08/01/24 07/31/24 History levothyroxine 125 mcg tablet 125 mcg PO DAILY 08/01/24 08/01/24 History amoxicillin 875 mg-potassium 1 tab PO BID 7 days #14 tabs 08/05/24 Unknown Rx clavulanate 125 mg tablet Allergy/AdvReac Type Severity Reaction Status Date / Time No Known Allergies Allergy Verified 08/08/24 10:07 Social History (Reviewed 08/10/24 @ 09:25 by Karolina Esteban MEDICAL DATA ENTRY CLERK, MEDICAL DATA ENTRY CLERK-C) Smoking Status: Never smoker ROS Constitutional Constitutional: Denies fatigue, fever(s) or headache(s) Eyes Eyes: Reports none ENT HEENT: Reports none Cardiovascular Cardiovascular: Denies chest pain or dyspnea Respiratory/Chest Respiratory/Chest: Denies cough or dyspnea Gastrointestinal Gastrointestinal: Reports none Genitourinary Genitourinary: Reports none Musculoskeletal Musculoskeletal: Reports joint swelling Integumentary Integumentary: Reports none Neurologic Neurologic: Reports none Psychiatric Psychiatric: Reports none Endocrine Endocrinology: Reports as per HPI Hematologic/Lymphatic Hematologic/Lymphatic: Reports none Allergic/Immunologic Allergic/Immunologic: Reports none Vital Signs Vital Signs Vital Signs: 08/08/24 09:50 Temperature 97.4 F L Temperature Source Temporal Pulse Rate 69 Respiratory Rate 20 H Blood Pressure 145/80 H Blood Pressure Mean 101 Blood Pressure Source Monitor Weight Weight: 230 lb 1.011 oz Body Mass Index (BMI) 32.1 Physical Exam Narrative Right index finger: Const alert and oriented x3 General Appearance: cooperative and well kempt HEENT normocephalic Head and Scalp: atraumatic Eyes General Eye: normal appearance of both eyes Neck full ROM Lymph Lymphatic: no lymphedema noted Resp normal respiratory effort, normal air movement and clear to auscultation bilaterally Effort and Inspection: able to speak in complete sentences Cardio regular rate and regular rhythm Back/Spine normal ROM Extremity normal capillary refill Extremity Narrative: Right index finger that has decrease in swelling. He is able to make a loose fist. He is able to bend his right index finger. No erythema present. Peripheral Pulses: Yes pulses 2+ throughout Skin no rashes or lesions noted and no wounds Neuro oriented x3, CN's II-XII intact bilaterally and moves all extremities Psych mental status grossly normal and thought process normal Appearance: grossly normal Debridement Note Debridement Note Post-Debridement Measurements and Additional Note: Post-Debridement Measurements/Treatment WC - Nurse 1 - General Ulcer Assessment Start: 08/08/24 09:50 Freq: Status: Active Protocol: BECKY Activity Type Activity Date Activity User E-sign Co-sign Detail Recorded Client Recorded Date Recorded By Document 08/08/24 09:50 DL [id number] 08/08/24 10:06 DL 08/08/24 09:50 - Today's Visit Information Type of service Initial Visit Arrival Mode Ambulatory Transfer Assistance None Patient Identification Verified (Name & Yes ) Patient Requires Transmission-Based No Precautions Height and Weight Height 5 ft 11 in Weight 230 lb 1.011 oz Weight in Pounds 230.1 lbs Body Mass Index (BMI) 32.1 BMI Classification Obese BSA - Yamil 2.24 Vital Signs Temperature (97.8 F-99.1 F) 97.4 F L Temperature Source Temporal Pulse Rate (60-100) 69 Pulse Location Monitor Respiratory Rate (12-18) 20 H Respiratory rate source Observation Blood Pressure (90/60-120/80) 145/80 H Blood Pressure Mean 101 Source Monitor Pain Scale: 0-10 Numeric Is Patient Pain Free? Yes Communication Assessment Preferred language Pakistani Able to Read Yes Able to Write Yes Right Hearing Abillity Normal Left Hearing Abillity Normal Visual Assistive Devices Glasses Teaching Assessment Preferences Verbal,Written, Demonstration Readiness To Learn Excellent Willingness to Engage in Self Management High Activies Readiness to Engage in Self Management High Activities Anxiety Level Calm Cooperation Cooperative Perception Coherent Interest in Health Problem Asks Questions Education Importance Acknowledges Need Does Patient Smoke tobacco or other No substances Smoking Status Never smoker Is Patient Diabetic No Functional Assessment Recent Decline in Ability to Perform Denies Any Declines Culture/Judaism/Dramatic Arts Historian Cultural/Judaism Needs that may affect No Treatment Plan Would you allow our hospital data examination clerk to No meet you for the purpose of spiritual/ emotional support? Dramatic Arts Historian to contact place of episcopal No Teaching: Wound Center *Welcome to the Wound Center -Person Taught Patient INA - Nurse 1 - General Ulcer Measurement Start: 08/08/24 09:50 Freq: Status: Active Protocol: Activity Type Activity Date Activity User E-sign Co-sign Detail Recorded Client Recorded Date Recorded By Document 08/08/24 09:50 DL [id number] 08/08/24 10:06 DL 08/08/24 09:50 Wound Center Nurse 1 #1 R Hand/Index Finger -Current Size (cm) - Length 0 -Current Size (cm) - Width 0 -Current Size (cm) - Depth 0 -Total Square Cm 0 -Photo Taken Yes -Exudate Amt None Present -Wound Margin Indistinct, Non -Visible -Granulation Amt Large (67-100%) -Granulation Quality [place] -Necrosis Amt None Present (0 %) -Structure Exposed N/A -Texture (Carla-wound Skin Appearance) Localized Edema -Moisture (Carla-wound Skin Appearance) No Abnormality -Color (Carla-wound Skin Appearance) No Abnormality -Temperature (Carla-wound Skin No Abnormality Appearance) (Pt Warm) -Ulcer Cleansing Soap and Water -Foul Odor after Cleansing No WC - Nurse 2 - General Ulcer CM Notes Start: 08/08/24 09:50 Freq: Status: Active Protocol: Activity Type Activity Date Activity User E-sign Co-sign Detail Recorded Client Recorded Date Recorded By Document 08/08/24 10:22 [employer] [id number] 08/08/24 10:23 08/08/24 10:22 Pain Scale: 0-10 Numeric Is Patient Pain Free? Yes WC - Nurse 3 - General Ulcer D/C NN Start: 08/08/24 09:50 Freq: Status: Active Protocol: Activity Type Activity Date Activity User E-sign Co-sign Detail Recorded Client Recorded Date Recorded By Document 08/08/24 10:23 [employer] [id number] 08/08/24 10:24 08/08/24 10:23 Wound Care Center Nurse 3 right index finger -Other coban Pain Scale: 0-10 Numeric Is Patient Pain Free? Yes Charges/Coding Visit Charges Office Visits / Consults: 61962 OV L3 Est 20min Assessment/Plan Assessment/Plan (1) Cellulitis of finger, right: CODE(S): L03.011 - Cellulitis of right finger PLAN: Plan Right index finger with good range of motion. He continues to have swelling but it is improving. He has no erythema. Recommend warm water soaks to help with circulation. He can wrap coband around the finger, from the tip to the base, to give mild compression and help with swelling. Continue to use finger/hand. Instructed to keep hand elevated as much as possible to help with swelling. Continue to use hand as much as possible to prevent stiffness. Continue antibiotics (Augmentin). He will follow up with Dr. Malhotra later this week or next week in our office.
--- NOTE | 2024-08-09 13:50 | WC ---
PHOTO 08/08/24 RIGHT HAND
== END 2024-08-08 15:55 | disposition home or self-care (01) ==
LOC: WC 09:44
PROVIDERS: PCP Family Medicine; Referring Provider Surgery Plastic and Reconstructive Surgery; Visit Provider Nurse Practitioner Family
DX: L03.011 Cellulitis of right finger (principal); M79.641 Pain in right hand; M19.041 Primary osteoarthritis, right hand; E03.9 Hypothyroidism, unspecified; Z79.890 Hormone replacement therapy
CPT/HCPCS: 99212; 99213; G0463